=== PATIENT | female | born 1975 | race Caucasian/White ===

== ENCOUNTER 2021-01-28 14:14 | Emergency (ER) | payer OTHER ==
[~2021-01-28] VITALS: Ht 182.9 cm; Wt 95.0 kg
[~2021-01-28 14:14] MED LIST: ADVIL200 MG OR; ALPRAZOLAM0.5 MG PO; ARAVA20 MG PO; AUGMENTIN500TAB PO; AUGMENTIN875TAB PO; BACTRIM DS1 TAB PO; BD INSULIN XX; BIAXIN500 M1 OR; CLOBETASOL0.053 EX; DIFLUCAN150 MG OR; DIFLUCAN150 MG PO; DURAGESIC50 MCG/H1 TD; FOLIC ACID; FOLIC ACID1 MG PO; GABAPENTIN300 MG PO; GABAPENTIN600 MG PO; KETOCONAZOLE200 MG PO; LANTUS SC; LISINOP/HCTZ1 TA1 PO; LISINOPRIL10 MG PO; LORTAB 10 PO; LORTAB 1010 MG PO; LORTAB 7.5 PO; LOTRISONE EX; LYRICA50 MG PO; METHOTREXATE2.5 MG PO; METOPROL TAR100 MG PO; METOPROL TAR50 MG OR; METOPROL TAR50 MG PO; METOPROLOL TART50 MG PO; MOTRIN800 MG/TAB PO; NOVOLIN 70/30 SC; NOVOLOG100 IU/1 M SC; NYSTATIN100000 M3 TOP; ONE TOUCH ULTRA 100 XX; PREDNISONE20 MG PO; REMICADE INJ100 MG; RHEUMATREX2.5 MG; TRIAM/NYSTAT EX; VITAMIN D2000 UNIT PO; XANAX0.5 MG OR
[2021-01-28 15:36] LABS: IMMATURE GRANULOCYTES 0.3 % (0.0-5.0); MEAN CORPUSCULAR HGB 29.2 pG CALC (26.0-32.0); MEAN CORPUSCULAR HGB CONC 32.4 g/dL CAL (32.0-36.0); NEUT# 4.88 thou/uL (2.00-7.15); RED BLOOD COUNT 4.69 mill/uL (4.20-5.60); RED CELL DISTRI WIDTH 13.1 % (11.5-15.5)
[2021-01-28 15:39] LABS: ALBUMIN 3.5 g/dL (3.2-5.0); ALKALINE PHOSPHATASE 90 u/l (38-126); ANION GAP 10 (6-22 (CALC)); BUN 11 mg/dL (7-17); BUN/CREATININE RATIO 18 (12-20 (CALC)); CARBON DIOXIDE 27 mmol/l (22-30); CHLORIDE 101 mmol/l (95-108); CREATININE 0.6 mg/dL (0.5-1.0); GFR > 60 ML/MIN (>=60 (CALC)); GFR FOR AFR.AMER. > 60 ML/MIN (>=60 (CALC)); POTASSIUM 4.2 mmol/l (3.5-5.1); SODIUM 134 mmol/l (137-146)
[2021-01-28 15:41] LABS: HEMATOCRIT 42.3 % (37.0-47.0); HEMOGLOBIN 13.7 g/dl (12.0-16.0); MEAN CELL VOLUME 90.2 fL CALC (80.0-100.0)
[2021-01-28 15:43] LABS: BILIRUBIN, TOTAL 0.2 mg/dL (0.0-1.4); SGOT/AST 35 u/l (14-36)
[2021-01-28] MEDS ORDERED: NORVASC5 M1 PO (15:58)
[2021-01-28] MEDS ORDERED: DIFLUCAN150 MG PO (15:58)
[2021-01-28] MEDS ORDERED: COLCHICINE0.6 M2 PO (15:59)
[2021-01-28] MEDS ORDERED: OMNICEF300 M1 PO (15:59)
[2021-01-28 16:22] VITALS: BP 208/85
== END 2021-01-28 16:22 | disposition home or self-care (01) | DRG 603 ==
LOC: ED 14:14
PROVIDERS: Family Medicine
DX: L03.116 Cellulitis of left lower limb (principal); S90.812A Abrasion, left foot, initial encounter; E11.9 Type 2 diabetes mellitus without complications; M19.90 Unspecified osteoarthritis, unspecified site; Z79.4 Long term (current) use of insulin; X58.XXXA Exposure to other specified factors, initial encounter

== ENCOUNTER 2022-09-14 08:08 | Day surgery (SDC) | payer OTHER ==
[~2022-09-14 08:08] MED LIST changes: +COLCHICINE0.6 M2 PO; +COZAAR25 MG PO; +NORVASC5 M1 PO; +NOVOLIN N100 UNIT/3 IN; +OMNICEF300 M1 PO; +TRESIBA100 UNIT/M; +VITAMIN D1000 UNIT PO
[2022-09-14] MEDS ORDERED: PERCOCET 5/321 COMBO PO (10:57)
[2022-09-14 12:28] VITALS: BP 146/68
== END 2022-09-14 12:40 | disposition home or self-care (01) | DRG 349 ==
LOC: ORM 08:08
PROVIDERS: ATTEND Surgery
PROC: 06BY3ZC Excision of Hemorrhoidal Plexus, Percutaneous Approach (ICD-10-PCS; principal; 2022-09-14)
PROC: 0DJD8ZZ Inspection of Lower Intestinal Tract, Via Natural or Artificial Opening Endoscopic (ICD-10-PCS; 2022-09-14)
DX: K64.2 Third degree hemorrhoids (principal); Z12.11 Encounter for screening for malignant neoplasm of colon; I10 Essential (primary) hypertension; E11.9 Type 2 diabetes mellitus without complications; K21.9 Gastro-esophageal reflux disease without esophagitis; Z79.4 Long term (current) use of insulin
CPT/HCPCS: C9290; J0131

== ENCOUNTER 2023-03-20 11:18 | Emergency (ER) | payer OTHER ==
[~2023-03-20] VITALS: Ht 172.7 cm; Wt 81.4 kg
[~2023-03-20 11:18] MED LIST changes: +PERCOCET 5/321 COMBO PO
[2023-03-20] MEDS ORDERED: PREDNISONE10 MG PO (14:20)
[2023-03-20 14:33] VITALS: BP 127/76
== END 2023-03-20 14:33 | disposition home or self-care (01) | DRG 195 ==
LOC: ED 11:18
DX: J10.1 Influenza due to other identified influenza virus with other respiratory manifestations (principal); E11.9 Type 2 diabetes mellitus without complications; Z79.4 Long term (current) use of insulin; Z20.822 Contact with and (suspected) exposure to COVID-19